=== PATIENT | female | born 1940 | race African-American/Black ===

== ENCOUNTER 2019-09-19 19:29 | Emergency (ER) | payer OTHER, MEDICAID ==
[~2019-09-19] VITALS: Ht 162.6 cm; Wt 41.0 kg
[~2019-09-19 19:29] MED LIST: LISI1TAB13 PO; METO10TA3 PO; OMEP20CA5 PO; SIMV20TA6 PO; SUCR1TAB PO
[2019-09-19] MEDS ORDERED: IPRATROPIUM BROMIDE (0.02%) 0.5MG/2.5ML NEB HHN STA (19:46)
[2019-09-19] MEDS ORDERED: ALBUTEROL (0.083%) 2.5MG/3ML NEB HHN STA ×2 (19:46→23:58)
[2019-09-19 20:14] LABS: BASOPHILS % 0.7 % (0.0-2.0); EOSINOPHILS % 7.8 % (0.0-5.0); HEMATOCRIT. 44.2 % (36.0-48.0); HEMOGLOBIN. 14.8 g/dL (12.0-16.0); MEAN CORPUSCULAR HEMOGLOBIN 29.8 pg (28.0-32.0); MEAN CORPUSCULAR VOLUME 89.2 fL (81.0-99.0); MEAN PLATELET VOLUME 9.9 fl (7.4-10.4); MONOCYTES % 9.7 % (2.0-8.0); NEUTROPHILS % 57.8 % (40.0-76.0); PLATELET 167 x1000/uL (130-400); RED BLOOD CELL COUNT 4.96 mill/uL (4.2-5.4); RED CELL DISTRIBUTION WIDTH 14.1 % (11.6-14.6)
[2019-09-19 20:18] LABS: CHLORIDE 104 mEq/L (98-107)
[2019-09-19 20:20] LABS: INR 1.1; PARTIAL THROMBOPLASTIN TIME 25.3 sec (23.4-31.0)
[2019-09-19 21:27] LABS: BG BASE EXCESS 3.4 mmol/L (-2.0-2.0); BG BILEVEL POS AIRWAY PRESSURE 15/5; BG CARBOXYHEMOGLOBIN 0.4 % (0.5-1.5); BG DEOXYHEMOGLOBIN 1.4 % (0.0-5.0); BG FRACTION INSPIRED OXYGEN 60; BG OXYGEN SATURATION 98.6 % (92.0-98.5); BG OXYHEMOGLOBIN 98.2 % (94.0-97.0); BG PO2 225.5 mmHg (75.0-100.0); BG SAMPLE SITE LEFT RADIAL; BG VENT MODE MASK - BIPAP; BG VENT RATE 14 set
[2019-09-20 00:54] VITALS: BP 101/65
== END 2019-09-20 02:01 | disposition short-term general hospital (02) ==
LOC: ER 19:29
DX: J45.901 Unspecified asthma with (acute) exacerbation (principal); J96.90 Respiratory failure, unspecified, unspecified whether with hypoxia or hypercapnia; I50.9 Heart failure, unspecified; I11.0 Hypertensive heart disease with heart failure; Z88.6 Allergy status to analgesic agent
CPT/HCPCS: 36415; 36600; 71045; 80053; 82375; 82805; 83605; 83880; 84484; 85025; 85610; 85730; 93005; 94660; 99291; J7611

== ENCOUNTER 2020-12-16 18:13 | Inpatient (IN) | payer OTHER, MEDICAID ==
[~2020-12-16] VITALS: Ht 165.1 cm; Wt 59.4 kg
[~2020-12-16 18:13] MED LIST changes: +OMEP20CA14 PO; -OMEP20CA5 PO; +SIMV-43 PO; -SIMV20TA6 PO
[2020-12-16 19:44] LABS: BASOPHILS % 0.9 % (0.0-2.0); EOSINOPHILS % 13.6 % (0.0-5.0); HEMATOCRIT. 42.7 % (36.0-48.0); HEMOGLOBIN. 13.9 g/dL (12.0-16.0); LYMPHOCYTES % 19.7 % (20.0-50.0); MEAN CORPUSCULAR HEMOGLOBIN 28.8 pg (28.0-32.0); MEAN CORPUSCULAR VOLUME 88.5 fL (81.0-99.0); MEAN PLATELET VOLUME 10.5 fl (7.4-10.4); NEUTROPHILS % 57.8 % (40.0-76.0); PLATELET 177 x1000/uL (130-400); RED BLOOD CELL COUNT 4.82 mill/uL (4.2-5.4)
[2020-12-16 19:47] LABS: CHLORIDE 102 mEq/L (98-107)
[2020-12-16] MEDS ORDERED: HEPARIN 5000 UNITS/ML VIAL IV ONE (21:00)
[2020-12-16] MEDS ORDERED: ASPIRIN 325MG EC TABLET PO ONE (21:00)
[2020-12-16] MEDS ORDERED: HEPARIN 25,000 UNITS PREMIX 250 ML IV ONE (21:00)
[2020-12-16] MEDS ORDERED: HEPARIN 25,000 UNITS PREMIX 250 ML IV SCH (21:45)
[2020-12-16] MEDS ORDERED: HEPARIN BOLUS PRN aPTT <30 IV (21:45)
[2020-12-16] MEDS ORDERED: HEPARIN BOLUS PRN aPTT 30-44 IV (21:45)
[2020-12-16] MEDS ORDERED: HEPARIN 60 UNITS/KG BOLUS IV NR (22:00)
[2020-12-16] MEDS ORDERED: CLONIDINE 0.1MG TABLET PO PRN (22:15)
[2020-12-16] MEDS ORDERED: NITROGLYCERIN 0.4MG TABLET SL SL PRN (22:15)
[2020-12-16] MEDS ORDERED: DOCUSATE SODIUM 100MG CAPSULE PO PRN (22:15)
[2020-12-16] MEDS ORDERED: TRAMADOL 50MG TABLET PO PRN (22:15)
[2020-12-16] MEDS ORDERED: ONDANSETRON HCL 4MG/2ML INJ IV PRN (22:15)
[2020-12-16] MEDS ORDERED: MAGNESIUM/ALUMINUM HYDROXIDE/SIMETHICONE 30ML UDC PO PRN (22:15)
[2020-12-16] MEDS ORDERED: ZOLPIDEM TARTRATE 5MG TABLET PO PRN (22:15)
[2020-12-16] MEDS ORDERED: ACETAMINOPHEN 325MG TABLET PO PRN ×2 (22:15)
[2020-12-16] MEDS ORDERED: POTASSIUM CHLORIDE 20MEQ TABLET SR PO NR (22:30)
[2020-12-16 23:21] LABS: VITAMIN B12 SERUM 1200 pg/mL (211-911)
[2020-12-16] MEDS: FUROSEMIDE 40MG/4ML VIAL IVP SCH (23:33)
[2020-12-16] MEDS: NITROGLYCERIN OINT 1GM/INCH UDPKT TD SCH (23:34)
[2020-12-16] MEDS: AMLODIPINE 10MG TABLET PO SCH (23:34)
[2020-12-16] MEDS: SPIRONOLACTONE 25MG TABLET PO SCH (23:35)
[2020-12-16 23:56] LABS: FOLIC ACID (FOLATE) SERUM > 20.00 ng/mL (>5.38)
[2020-12-17] VITALS (10 sets, daily range): BP systolic 97–117; BP diastolic 32–87
[2020-12-17] MEDS: ENOXAPARIN 60MG/0.6ML SYR SUBCUT SCH ×2 (03:26→14:58)
[2020-12-17 04:33] LABS: BASOPHILS % 0.7 % (0.0-2.0); EOSINOPHILS % 9.5 % (0.0-5.0); HEMATOCRIT. 42.8 % (36.0-48.0); LYMPHOCYTES % 14.5 % (20.0-50.0); MEAN CORPUSCULAR HEMOGLOBIN 29.1 pg (28.0-32.0); MEAN CORPUSCULAR VOLUME 88.7 fL (81.0-99.0); MEAN PLATELET VOLUME 9.9 fl (7.4-10.4); NEUTROPHILS % 67.3 % (40.0-76.0); PLATELET 188 x1000/uL (130-400); RED BLOOD CELL COUNT 4.83 mill/uL (4.2-5.4)
[2020-12-17 04:51] LABS: CHLORIDE 102 mEq/L (98-107)
[2020-12-17 05:00] LABS: PHOSPHORUS 4.8 mg/dL (2.5-4.9)
[2020-12-17 05:03] LABS: CREATINE KINASE 175 IU/L (26-192)
[2020-12-17 05:06] LABS: CREATINE KINASE MB FRACTION 9.4 ng/mL (0.5-3.6)
[2020-12-17] MEDS: NITROGLYCERIN OINT 1GM/INCH UDPKT TD SCH ×3 (06:09→22:34)
[2020-12-17 06:41] LABS: *BARBITURATES SCREEN URINE NEGATIVE (NEGATIVE); *BENZODIAZEPINES SCREEN URINE NEGATIVE (NEGATIVE); CANNABINOID URINE SCREEN NEGATIVE (NEGATIVE); METHADONE URINE SCREEN NEGATIVE (NEGATIVE); OPIATES URINE SCREEN NEGATIVE (NEGATIVE); PHENCYCLIDINE URINE SCREEN NEGATIVE (NEGATIVE)
[2020-12-17 06:42] LABS: *AMPHETAMINES SCREEN URINE NEGATIVE (NEGATIVE); *COCAINE SCREEN URINE NEGATIVE (NEGATIVE)
[2020-12-17] MEDS: SPIRONOLACTONE 25MG TABLET PO SCH ×2 (08:06→21:13)
[2020-12-17] MEDS: CHOLECALCIFEROL (D3) 1000 UNIT TABLET PO SCH (08:07)
[2020-12-17] MEDS: AMLODIPINE 10MG TABLET PO SCH (08:07)
[2020-12-17] MEDS: FUROSEMIDE 40MG/4ML VIAL IVP SCH ×2 (08:07→21:14)
[2020-12-17] MEDS: ZINC SULFATE 220 MG ( 50 ) CAPSULE PO SCH (08:07)
[2020-12-17] MEDS: ASCORBIC ACID 500 MG TABLET PO SCH ×2 (08:07→21:13)
[2020-12-17] MEDS: FAMOTIDINE 20MG TABLET PO SCH ×2 (08:07→21:13)
[2020-12-17] MEDS: IPRATROPIUM/ALBUTEROL 0.5-3(2.5)MG/3ML NEB NEB PRN ×2 (08:11→17:08)
[2020-12-17] MEDS ORDERED: ASPIRIN 325MG EC TABLET PO SCH (09:00)
[2020-12-17] MEDS ORDERED: METOPROLOL TARTRATE 25MG TABLET PO SCH (09:00)
[2020-12-17] MEDS: LISINOPRIL 20MG TABLET PO SCH ×2 (09:00→21:16)
[2020-12-17 15:06] LABS: CREATINE KINASE MB FRACTION 6.2 ng/mL (0.5-3.6)
[2020-12-17] MEDS: ATORVASTATIN CALCIUM 40MG TABLET PO SCH (21:13)
[2020-12-17] MEDS: GUAIFENESIN 200MG/10ML SUGAR FREE UDC PO PRN (21:21)
[2020-12-18] VITALS (13 sets, daily range): BP systolic 95–141; BP diastolic 50–80
[2020-12-18] MEDS: ENOXAPARIN 60MG/0.6ML SYR SUBCUT SCH (01:51)
[2020-12-18] MEDS: GUAIFENESIN 200MG/10ML SUGAR FREE UDC PO PRN ×2 (01:52→15:04)
[2020-12-18] MEDS: IPRATROPIUM/ALBUTEROL 0.5-3(2.5)MG/3ML NEB NEB PRN (04:33)
[2020-12-18] MEDS: NITROGLYCERIN OINT 1GM/INCH UDPKT TD SCH ×3 (06:31→22:00)
[2020-12-18 08:26] LABS: INR 1.1; PROTHROMBIN TIME 11.5 sec (9.6-11.0)
[2020-12-18] MEDS: CHOLECALCIFEROL (D3) 1000 UNIT TABLET PO SCH (08:46)
[2020-12-18] MEDS: ASCORBIC ACID 500 MG TABLET PO SCH ×2 (08:46→21:10)
[2020-12-18] MEDS: ZINC SULFATE 220 MG ( 50 ) CAPSULE PO SCH (08:47)
[2020-12-18] MEDS: FAMOTIDINE 20MG TABLET PO SCH ×2 (08:47→21:10)
[2020-12-18] MEDS: FUROSEMIDE 40MG/4ML VIAL IVP SCH (08:47)
[2020-12-18] MEDS: AMLODIPINE 10MG TABLET PO SCH (08:48)
[2020-12-18] MEDS: LISINOPRIL 20MG TABLET PO SCH ×2 (08:48→20:58)
[2020-12-18] MEDS: SPIRONOLACTONE 25MG TABLET PO SCH ×2 (08:49→20:58)
[2020-12-18] MEDS ORDERED: ASPIRIN 81MG TABLET PO SCH (09:00)
[2020-12-18] MEDS: METHYLPREDNISOLONE SOD SUCC 40 MG/ML VIAL IV SCH ×2 (12:11→21:11)
[2020-12-18] MEDS ORDERED: GUAIFENESIN-DM 200MG-20MG/10ML UDC PO PRN (12:30)
[2020-12-18] MEDS: IPRATROPIUM/ALBUTEROL 0.5-3(2.5)MG/3ML NEB HHN SCH ×3 (12:32→20:30)
[2020-12-18] MEDS: LORATADINE 10MG TABLET PO SCH (12:44)
[2020-12-18] MEDS: MONTELUKAST SODIUM 10MG TABLET PO SCH (17:12)
[2020-12-18] MEDS ORDERED: ENOXAPARIN 40MG/0.4ML SYR SUBCUT SCH (21:00)
[2020-12-18] MEDS: ATORVASTATIN CALCIUM 40MG TABLET PO SCH (21:10)
[2020-12-19] VITALS (13 sets, daily range): BP systolic 95–153; BP diastolic 41–74
[2020-12-19] MEDS: IPRATROPIUM/ALBUTEROL 0.5-3(2.5)MG/3ML NEB HHN SCH ×6 (00:26→20:24)
[2020-12-19] MEDS: METHYLPREDNISOLONE SOD SUCC 40 MG/ML VIAL IV SCH ×2 (05:46→14:32)
[2020-12-19] MEDS: GUAIFENESIN 200MG/10ML SUGAR FREE UDC PO PRN (05:51)
[2020-12-19] MEDS: NITROGLYCERIN OINT 1GM/INCH UDPKT TD SCH ×2 (06:00→14:33)
[2020-12-19] MEDS: CHOLECALCIFEROL (D3) 1000 UNIT TABLET PO SCH (09:06)
[2020-12-19] MEDS: FAMOTIDINE 20MG TABLET PO SCH (09:06)
[2020-12-19] MEDS: ZINC SULFATE 220 MG ( 50 ) CAPSULE PO SCH (09:06)
[2020-12-19] MEDS: ASCORBIC ACID 500 MG TABLET PO SCH (09:06)
[2020-12-19] MEDS: LORATADINE 10MG TABLET PO SCH (09:06)
[2020-12-19] MEDS: AMLODIPINE 10MG TABLET PO SCH (09:08)
[2020-12-19] MEDS: LISINOPRIL 20MG TABLET PO SCH (09:09)
[2020-12-19] MEDS: SPIRONOLACTONE 25MG TABLET PO SCH (09:09)
[2020-12-19] MEDS: MONTELUKAST SODIUM 10MG TABLET PO SCH (17:18)
== END 2020-12-19 21:38 | disposition short-term general hospital (02) | DRG 280 ==
LOC: ER 18:13 → ENRESERV 12-17 02:17 → 3WST 12-17 03:58
PROVIDERS: ADMIT Internal Medicine; ATTEND Internal Medicine
PROC: 5A09357 Assistance with Respiratory Ventilation, Less than 24 Consecutive Hours, Continuous Positive Airway Pressure (ICD-10-PCS; principal; 2020-12-16)
PROC: 5A09357 Assistance with Respiratory Ventilation, Less than 24 Consecutive Hours, Continuous Positive Airway Pressure (ICD-10-PCS; 2020-12-18)
DX: I21.4 Non-ST elevation (NSTEMI) myocardial infarction (principal); J96.01 Acute respiratory failure with hypoxia; I50.43 Acute on chronic combined systolic (congestive) and diastolic (congestive) heart failure; I16.1 Hypertensive emergency; J45.901 Unspecified asthma with (acute) exacerbation; I11.0 Hypertensive heart disease with heart failure; E87.6 Hypokalemia; E11.9 Type 2 diabetes mellitus without complications; E78.5 Hyperlipidemia, unspecified; I27.20 Pulmonary hypertension, unspecified; K21.9 Gastro-esophageal reflux disease without esophagitis; Z87.09 Personal history of other diseases of the respiratory system; Z88.6 Allergy status to analgesic agent; I25.2 Old myocardial infarction; Z79.899 Other long term (current) drug therapy
CPT/HCPCS: 36415; 71045; 80053; 80061; 80305; 82550; 82553; 82607; 82746; 83036; 83540; 83550; 83735; 83880; 84100; 84484; 85025; 93005; 93306; 93970; 94640; 94660; 97162; 97166; 99291; J1644; J1650; J1940; J2920

== ENCOUNTER 2021-03-24 00:43 | Emergency (ER) | payer OTHER, MEDICAID ==
[~2021-03-24] VITALS: Ht 152.4 cm; Wt 64.0 kg
[2021-03-24] MEDS ORDERED: IPRATROPIUM BROMIDE (0.02%) 0.5MG/2.5ML NEB HHN STA (00:56)
[2021-03-24] MEDS ORDERED: METHYLPREDNISOLONE SOD SUCC 125 MG/2 ML VIAL IV STA (00:56)
[2021-03-24] MEDS ORDERED: ALBUTEROL (0.083%) 2.5MG/3ML NEB HHN STA (00:56)
[2021-03-24] MEDS ORDERED: NITROGLYCERIN OINT 1GM/INCH UDPKT TD ONE (01:00)
[2021-03-24 01:40] LABS: BG BASE EXCESS 2.6 mmol/L (-2.0-2.0); BG CARBOXYHEMOGLOBIN 0.5 % (0.5-1.5); BG DEOXYHEMOGLOBIN 1.1 % (0.0-5.0); BG OXYGEN SATURATION 98.9 % (92.0-98.5); BG OXYHEMOGLOBIN 98.4 % (94.0-97.0); BG PCO2 51.6 mmHg (35.0-45.0); BG PH 7.367 (7.350-7.450); BG PO2 176.7 mmHg (75.0-100.0); BG SAMPLE SITE LEFT RADIAL; BG TOTAL HEMOGLOBIN 14.1 g/dL (12.0-18.0); BG VENT MODE ROOM AIR
[2021-03-24 02:05] LABS: BASOPHILS % 0.9 % (0.0-2.0); EOSINOPHILS % 12.8 % (0.0-5.0); HEMATOCRIT. 41.8 % (36.0-48.0); LYMPHOCYTES % 20.4 % (20.0-50.0); MEAN CORPUSCULAR HEMOGLOBIN 30.5 pg (28.0-32.0); MEAN PLATELET VOLUME 10.1 fl (7.4-10.4); MONOCYTES % 8.6 % (2.0-8.0); NEUTROPHILS % 57.3 % (40.0-76.0); PLATELET 189 x1000/uL (130-400); RED BLOOD CELL COUNT 4.59 mill/uL (4.2-5.4); RED CELL DISTRIBUTION WIDTH 14.4 % (11.6-14.6)
[2021-03-24 02:09] LABS: CHLORIDE 104 mEq/L (98-107)
[2021-03-24 04:18] VITALS: BP 145/73
== END 2021-03-24 04:18 | disposition short-term general hospital (02) ==
LOC: ER 00:51
DX: J44.1 Chronic obstructive pulmonary disease with (acute) exacerbation (principal); I11.0 Hypertensive heart disease with heart failure; I50.9 Heart failure, unspecified; Z88.6 Allergy status to analgesic agent; Z20.822 Contact with and (suspected) exposure to COVID-19
CPT/HCPCS: 36415; 36600; 71045; 80053; 82375; 82805; 83880; 84484; 85025; 87426; 93005; 96374; 99291; J2930; 99285

== ENCOUNTER 2021-11-28 11:58 | Emergency (ER) | payer OTHER, MEDICAID ==
[~2021-11-28] VITALS: Ht 172.7 cm; Wt 67.0 kg
[2021-11-28] MEDS ORDERED: ALBUTEROL (0.083%) 2.5MG/3ML NEB HHN STA (12:42)
[2021-11-28] MEDS ORDERED: IPRATROPIUM BROMIDE (0.02%) 0.5MG/2.5ML NEB HHN STA (12:42)
[2021-11-28] MEDS ORDERED: METHYLPREDNISOLONE SOD SUCC 125 MG/2 ML VIAL IV STA (12:42)
[2021-11-28] MEDS ORDERED: MAGNESIUM 2 G PREMIX 50 ML IV STA (13:25)
[2021-11-28 13:40] LABS: CHLORIDE 102 mEq/L (98-107)
[2021-11-28 14:30] LABS: HEMATOCRIT. 41.6 % (36.0-48.0); HEMOGLOBIN. 13.7 g/dL (12.0-16.0); MEAN CORPUSCULAR HEMOGLOBIN 29.1 pg (28.0-32.0); MEAN CORPUSCULAR VOLUME 88.2 fL (81.0-99.0); MEAN PLATELET VOLUME 9.9 fl (7.4-10.4); PLATELET 193 x1000/uL (130-400); RED BLOOD CELL COUNT 4.72 mill/uL (4.2-5.4)
[2021-11-28 14:53] LABS: PLATELET ESTIMATE NORMAL
[2021-11-28 15:42] LABS: BG BASE EXCESS 1.5 mmol/L (-2.0-2.0); BG CARBOXYHEMOGLOBIN 0.3 % (0.5-1.5); BG DEOXYHEMOGLOBIN 4.2 % (0.0-5.0); BG FRACTION INSPIRED OXYGEN 28; BG HCO3 ACT 28.1 mmol/L (22.0-26.0); BG METHEMOGLOBIN 0.1 % (0.0-1.5); BG OXYGEN SATURATION 95.8 % (92.0-98.5); BG OXYHEMOGLOBIN 95.4 % (94.0-97.0); BG PCO2 52.1 mmHg (35.0-45.0); BG PO2 91.8 mmHg (75.0-100.0); BG SAMPLE SITE RIGHT RADIAL; BG TOTAL HEMOGLOBIN 14.1 g/dL (12.0-18.0); BG VENT MODE NASAL CANNULA
[2021-11-28 18:16] VITALS: BP 151/66
== END 2021-11-28 18:17 | disposition short-term general hospital (02) ==
LOC: ER 11:58
DX: J45.901 Unspecified asthma with (acute) exacerbation (principal); I11.0 Hypertensive heart disease with heart failure; I50.9 Heart failure, unspecified; Z20.822 Contact with and (suspected) exposure to COVID-19; Z88.6 Allergy status to analgesic agent
CPT/HCPCS: 36415; 36600; 71045; 80053; 82375; 82805; 83880; 84484; 85025; 87426; 93005; 96365; 96375; 99285; J2930; J3475

== ENCOUNTER 2023-11-22 11:09 | Emergency (ER) | payer OTHER, MEDICAID ==
[~2023-11-22] VITALS: Ht 170.2 cm; Wt 68.0 kg
[2023-11-22] MEDS: ALBUTEROL (0.083%) 2.5MG/3ML NEB HHN STA (11:29)
[2023-11-22] MEDS: IPRATROPIUM BROMIDE (0.02%) 0.5MG/2.5ML NEB HHN STA (11:29)
[2023-11-22 12:01] LABS: HEMATOCRIT. 42.1 % (36.0-48.0); HEMOGLOBIN. 13.8 g/dL (12.0-16.0); MEAN CORPUSCULAR HEMOGLOBIN 29.1 pg (28.0-32.0); MEAN CORPUSCULAR HGB CONC 32.7 g/dL (31.0-37.0); MEAN PLATELET VOLUME 10.2 fl (7.4-10.4); PLATELET 194 x1000/uL (130-400); RED BLOOD CELL COUNT 4.74 mill/uL (4.2-5.4); RED CELL DISTRIBUTION WIDTH 15.1 % (11.6-14.6); WHITE BLOOD COUNT 4.5 x1000/uL (4.5-11.0)
[2023-11-22 12:07] LABS: DIFFERENTIAL COMMENT 1
[2023-11-22] MEDS: METHYLPREDNISOLONE SOD SUCC 125MG/2ML (ACT-O-VIAL) IV STA (12:20)
[2023-11-22 12:21] LABS: ALANINE AMINOTRANSFERASE 45 IU/L (10-49); ALBUMIN 4.7 g/dL (3.2-4.8); ASPARTATE AMINOTRANSFERASE 42 IU/L (<34); BILIRUBIN TOTAL 0.6 mg/dL (0.1-1.0); CALCIUM 9.7 mg/dL (8.7-10.4); CARBON DIOXIDE 30 mEq/L (21-32); CHLORIDE 105 mEq/L (98-107); CREATININE 0.7 mg/dL (0.6-1.0); GLUCOSE 212 mg/dL (70-105); POTASSIUM 3.3 mEq/L (3.5-5.1); PROTEIN TOTAL 7.7 g/dL (6.0-8.3); SODIUM 141 mEq/L (136-145); TROPONIN I HIGH SENSITIVITY 5 ng/L (3.0-34); UREA NITROGEN BLOOD 16 mg/dL (9-23)
[2023-11-22 12:40] VITALS: PULSE 77; RESP 22; O2SAT 95
[2023-11-22 13:03] LABS: PLATELET ESTIMATE NORMAL
[2023-11-22 18:45] VITALS: BP 148/72; PULSE 89; RESP 16; TEMP 98.4
== END 2023-11-22 18:52 | disposition short-term general hospital (02) ==
LOC: ER 11:09 → EDBEDREQ 12:56 → ER 18:52 → CANBEDREQ 19:07
DX: J44.1 Chronic obstructive pulmonary disease with (acute) exacerbation (principal); I11.0 Hypertensive heart disease with heart failure; I50.9 Heart failure, unspecified; E11.9 Type 2 diabetes mellitus without complications; Z98.890 Other specified postprocedural states; Z20.822 Contact with and (suspected) exposure to COVID-19
CPT/HCPCS: 99285; 96374; 71045; 87426; 80053; 83880; 85025; 84484; 87804 ×2; 36415; 93005; 94644; J2930